=== PATIENT | male | born 1990 | race Caucasian/White ===

== ENCOUNTER 2018-11-02 11:13 | Day surgery (SDC) | payer OTHER ==
[~2018-11-02] VITALS: Ht 182.9 cm; Wt 70.3 kg
[~2018-11-02 11:13] MED LIST: ASPI-630 PO; CARV6.25 PO; HYDROmorphone 2 MG/ML VIAL IV PRN; IV RINGERS,LACTATED 1000ML 1,000 ML IV SCH; LIDOCAINE 1% PF 2 ML VIAL. ID PRN; MORPHINE SULFATE 4 MG/ML VIAL. IV PRN; ONDANSETRON PF 4 MG/2 ML VIAL. IV PRN; PROCHLORPERAZINE 10 MG/2 ML VIAL. IV PRN; TRAM50TA PO; fentaNYL PF VIAL 100 MCG/2 ML VIAL IV PRN
[2018-11-02] MEDS ORDERED: GELATIN SPONGE SIZE 100. ONE (12:20)
[2018-11-02] MEDS ORDERED: BUPIVAC MPF-EPI 0.5%-1:200000 30 ML VIAL. ONE (12:20)
[2018-11-02] MEDS ORDERED: ONDANSETRON PF 4 MG/2 ML VIAL. ONE (12:29)
[2018-11-02] MEDS ORDERED: LIDOCAINE 2% PF Vial for OR 5 ML VIAL. ONE (12:29)
[2018-11-02] MEDS ORDERED: DEXAMETHASONE SOD PHOS 20 MG/5 ML VIAL. ONE (12:29)
[2018-11-02] MEDS ORDERED: MIDAZOLAM HCL/PF 2 MG/2 ML VIAL. ONE ×2 (12:29→13:02)
[2018-11-02] MEDS ORDERED: PROPOFOL 0 ML IV ONE (12:29)
[2018-11-02] MEDS ORDERED: ROCURONIUM 50 MG/5 ML VIAL. ONE (12:30)
[2018-11-02] MEDS ORDERED: fentaNYL PF VIAL 100 MCG/2 ML VIAL ONE (12:30)
[2018-11-02] MEDS ORDERED: CHLORHEXIDINE 0.12% 15 ML MOUTHWASH. SWSP ONE (12:30)
[2018-11-02] MEDS ORDERED: OXYMETAZOLINE 0.05% NASAL SPRAY 30ML BOTTLE. NS ONE (12:45)
[2018-11-02] MEDS ORDERED: PROPOFOL 20 ML IV ONE ×2 (13:26)
--- NOTE | 2018-11-02 13:38 | PDOC4 ---
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
[2018-11-02] MEDS ORDERED: traMADol 50 MG TABLET PO ONE (14:00)
--- NOTE | 2018-11-02 14:03 | OP ---
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 ATTENDING PHYSICIAN: Luis Richter DMD PREOPERATIVE DIAGNOSES: 1. Chronic idiopathic myocarditis. 2. Borderline ARVC. 3. Implantable cardiac defibrillator placed 2 years ago. 4. Right parahisian premature ventricular contraction, status post ablation. 5. Caries of teeth #3 and #5. POSTOPERATIVE DIAGNOSES: 1. Chronic idiopathic myocarditis. 2. Borderline ARVC. 3. Implantable cardiac defibrillator placed 2 years ago. 4. Right parahisian premature ventricular contraction, status post ablation. 5. Caries of teeth #3 and #5. PROCEDURE PERFORMED: Surgical extraction of teeth #3 and #5. BRIEF HISTORY: The patient was referred to our clinic for extraction of teeth #3 and #5. Given his significant cardiac history the setting of care was escalated to the operative suite. Permits were obtained and the patient was affable with our plan. DRAINS PLACED: None. SPECIMEN SENT: None. Teeth were disposed off in OR. ESTIMATED BLOOD LOSS: Less than 10 mL. COMPLICATIONS: None noted at the time of surgery. OPERATIVE PROCEDURE: After the history and physical was updated in the preoperative holding area, the patient was transported by the Anesthesia Service to the operating suite, placed in the supine position. Pressure pads were checked with additional padding. A time-out was initiated by surgical staff, all perioperative staff was in agreement. Local anesthesia in the form of 12 mL of 0.5% Marcaine, 1:200,000 epinephrine were administered to the proposed surgical areas. Additional 3 mL totaling 15 mL was administered by the culmination of the procedure. Moistened gauzes were placed in both left and right buccal vestibules. A bite block was placed in the left side of the mouth. This was utilized during the MAC anesthesia to assist with airway. Gauze was utilized with the pharyngeal curtain throughout the procedure to prevent any aspiration of teeth fragments or fluid. Surgery began with a #15 blade incision and a full thickness mucoperiosteal flap was reflected buccally at sites #3 and #5. Luxator elevators and forceps were employed to mobilize and surgically extract #3 and #5. Rongeur was employed to remove root tip at #5 and #3, and bone file was utilized to smooth the bone and remove any undercuts. These sites were lavaged with copious normal sterile saline irrigation. The sites were curetted. Gelfoam was placed in each extraction site and oversewn with 3-0 chromic gut sutures in a [id number] fashion. Hemostasis was achieved postoperatively. The patient's oral cavity was lavaged and suctioned. A gauze was placed and the patient was returned to the care of Anesthesia where he was allowed to recover, awakened and transported to the PACU in stable condition. LUIS RICHTER DMD DR: Mae JOB#: [id number] / [id number]
[2018-11-02 15:00] VITALS: BP 119/82
== END 2018-11-02 15:24 | disposition home or self-care (01) ==
LOC: SURG 11:13
PROVIDERS: ATTEND Dentist Oral and Maxillofacial Surgery
DX: K02.9 Dental caries, unspecified (principal); I51.4 Myocarditis, unspecified; Z95.810 Presence of automatic (implantable) cardiac defibrillator; I49.3 Ventricular premature depolarization; Z79.82 Long term (current) use of aspirin; Z79.899 Other long term (current) drug therapy; F17.220 Nicotine dependence, chewing tobacco, uncomplicated
CPT/HCPCS: 41899; J0690; J2250; J2704; J3010; J3490; J1100; J2001; J2405

== ENCOUNTER → 2022-02-26 | Outpatient (CLI) | payer OTHER ==
[~2022-02-26] MED LIST changes: -HYDROmorphone 2 MG/ML VIAL IV PRN; -IV RINGERS,LACTATED 1000ML 1,000 ML IV SCH; -LIDOCAINE 1% PF 2 ML VIAL. ID PRN; -MORPHINE SULFATE 4 MG/ML VIAL. IV PRN; -ONDANSETRON PF 4 MG/2 ML VIAL. IV PRN; -PROCHLORPERAZINE 10 MG/2 ML VIAL. IV PRN; -fentaNYL PF VIAL 100 MCG/2 ML VIAL IV PRN
--- NOTE | 2022-02-26 12:45 | RAD ---
CT HEAD WITHOUT CONTRAST 02/26/2022 12:27 PM Indication: Posttraumatic headaches Comparison: None Procedure: Multidetector CT imaging of the head was performed without the administration of contrast. Findings: There is no evidence of acute intracranial hemorrhage. There is no evidence of acute territ orial infarction. Please note that CT is limited for evaluation of acute ischemia. No mass effect or midline shift is identified . The ventricles and basilar cisterns have an appropriate appearance. No abnormal extra-axial fluid collections are seen. No acute osseous changes are identified. Impression: No evidence of acute intracranial abnormality CT DOSING PQRS STATEMENT: One or more of the following individualized dose reduction techniques were utilized for this examinat ion: 1. Automated exposure control 2. Adjustment of the mA and/or kV according to patient size 3. Use of iterative reconstruction technique Electronically signed by: Hima Williamson MD (02/26/2022 12:42 PM) [id number]
== END ==
LOC: CT 12:11
PROVIDERS: ATTEND Preventive Medicine Occupational Medicine
DX: G44.319 Acute post-traumatic headache, not intractable (principal)
CPT/HCPCS: 70450